=== PATIENT | male | born 1955 | race Caucasian/White ===

== ENCOUNTER 2016-10-14 15:00 | Inpatient (IN) | payer MEDICAID ==
[~2016-10-14] VITALS: Ht 175.3 cm; Wt 59.4 kg
[2016-10-14 15:08] VITALS: BP 118/82; PULSE 82; RESP 18; TEMP 97.6; O2SAT 98
--- NOTE | 2016-10-14 15:15 | NUR ---
Patient to ER bed 4 to gown for evaluation by Abby MILLER. Side rails up. Report given to me.
--- NOTE | 2016-10-14 15:20 | NUR ---
ER at bedside examining patient.
--- NOTE | 2016-10-14 15:30 | NUR ---
Patient presents to the emergency department with complaints of intermittent lower abd pain since about thursday, with diarrhea prior to arrival, 4/10 tolerable pain. (-)n/v at this time. Patient states he went to [facility] on thursday, was given morphine in the ER which did not help and an Rx of morphine to go home with but states the pharmacy "did not want to fill it, I dont know why." Patient noted to be having some slurred speech due to his myesthenia gravis per patient. Patient cooperative. will continue to monitor.
[2016-10-14 15:58] LABS: BASOPHILS % (AUTO) 0.2 % (0.0-2.0); HEMATOCRIT 41.1 % (36-54); HEMOGLOBIN 13.4 g/dL (14.0-18.0); LYMPHOCYTES # (AUTO) 1.1 K/uL (1.0-5.5); LYMPHOCYTES % (AUTO) 10.7 % (20.5-51.5); MEAN CORPUSCULAR HEMOGLOBIN 27 pg (27-31); MEAN CORPUSCULAR HGB CONC 33 % (32-36); MEAN CORPUSCULAR VOLUME 83 fL (79.0-98.0); MONOCYTES # (AUTO) 1.3 K/uL (0.0-1.0); MONOCYTES % (AUTO) 13.1 % (1.7-9.3); NEUTROPHILS # (AUTO) 7.4 K/uL (1.8-7.7); PLATELET COUNT (AUTO) 377 K/uL (130-430); RED BLOOD CELL COUNT(AUTO) 4.94 MIL/uL (4.2-6.2); RED CELL DISTRIBUTION WIDTH 16.7 % (9.0-15.0); WHITE BLOOD COUNT (AUTO) 9.8 K/uL (4.8-10.8)
[2016-10-14 16:01] LABS: CALCIUM 8.4 mg/dL (8.4-11.0); CREATININE 0.86 mg/dL (0.55-1.30); INR 1.2 (0.80-1.20); POTASSIUM 3.7 mmol/L (3.5-5.1); PROTHROMBIN TIME 12.9 SECS (9.5-12.5)
[2016-10-14 16:05] LABS: ALBUMIN 2.5 g/dL (3.4-4.8); TOTAL BILIRUBIN 0.7 mg/dL (0.0-1.0); TOTAL PROTEIN, SERUM 6.7 g/dL (6.4-8.3)
[2016-10-14 16:13] LABS: BILIRUBIN,URINE 2+ (NEGATIVE); BLOOD, URINE NEGATIVE (NEGATIVE); CLARITY/URINE SL HAZY (CLEAR); COLOR,URINE AMBER (YELLOW); GLUCOSE,URINE NEGATIVE (NEGATIVE); KETONES,URINE 2+ (NEGATIVE); LEUKOCYTE ESTERASE ,URINE NEGATIVE (NEGATIVE); NITRITE, URINE NEGATIVE (NEGATIVE); PROTEIN URINE 1+ (NEGATIVE)
--- NOTE | 2016-10-14 16:22 | NUR ---
Patient refused EKG for second time citing finacial concerns.
[2016-10-14] MEDS ORDERED: PIPERACILLIN/TAZO 3.375 GM in NS 50 ML IV ONE (17:00)
[2016-10-14] MEDS ORDERED: MORPHINE 4 MG/ML INJ. SYRINGE IVP ONE (17:00)
[2016-10-14] MEDS ORDERED: DIPHENHYDRAMINE INJ 50 MG/ML VIAL IVP ONE (17:00)
--- NOTE | 2016-10-14 17:00 | NUR ---
Dr cooper at the bedside to discuss with pt the POC
[2016-10-14] MEDS ORDERED: PIPERACILLIN/TAZOBACTAM 3.375 GM/VIAL (ZOSYN) IV ONE (17:06)
[2016-10-14 17:16] LABS: BACTERIA,URINE FEW /HPF (None Seen); MUCUS,URINE 2+ /LPF (None Seen); RBC,URINE NONE SEEN /HPF (0-3); WBC,URINE 0-3 /HPF (0-3)
[2016-10-14] MEDS ORDERED: MES60 PO (17:47)
[2016-10-14] MEDS ORDERED: LOPE2CAP PO (17:47)
--- NOTE | 2016-10-14 17:47 | NUR ---
Medication reconciliation completed with information provided by PATIENT. Any prior medication reconciliation on file was reviewed and corrected.
--- NOTE | 2016-10-14 18:27 | NUR ---
Patient will be admitted to care of DR JENSEN. Admitted to MED SURG unit. Will go to room 135 A. Summary report printed. Report given to JEANNETTE MILLER.
--- NOTE | 2016-10-14 18:39 | NUR ---
ADMIT NOTE Received pt from ER to the floor with a diagnosis of acute diverticulitis. Admission process initiated. Patient oriented to pain management, safety and call light-teach back done.
[2016-10-14 18:40] VITALS: BP 121/73; PULSE 64; RESP 17; TEMP 97.3; O2SAT 94
[2016-10-14] MEDS ORDERED: ACETAMINOPHEN 325 MG TABLET PO PRN (19:00)
[2016-10-14] MEDS ORDERED: MORPHINE 2 MG/ML INJ. SYRINGE IVP PRN (19:15)
[2016-10-14] MEDS ORDERED: ONDANSETRON HCL 4 MG/2 ML VIAL IVP PRN (19:15)
[2016-10-14] MEDS ORDERED: MORPHINE 4 MG/ML INJ. SYRINGE IVP PRN (19:15)
[2016-10-14] MEDS ORDERED: PYRIDOSTIGMINE BROMIDE 60 MG TABLET PO ONE (19:30)
--- NOTE | 2016-10-14 19:30 | NUR ---
Initial note Received report from ANGELA Oviedo. Lying in bed awake, alert & oriented x 4. Denies pain or discomfort at this time. Denies shortness of breath. Left ac IV access intact & patent. Speech garbled but able to verbalize needs. Ambulates to bathroom with supervision. Instructed on use of call light and to notify staff if in need of assistance. Verbalized understanding. Call light within reach, bed alarm on.
[2016-10-14 20:00] VITALS: BP 129/87; PULSE 76; RESP 18; TEMP 99.8; O2SAT 99
--- NOTE | 2016-10-14 21:13 | NUR ---
Ambulation Ambulated to bathroom to void and back to bed without assist. Notified RN prior to ambulation. Gait steady.
[2016-10-14] MEDS: LACTOBACILLUS RHAMNOSUS GG 1 CAP CAPSULE PO SCH (21:24)
[2016-10-14] MEDS: LR 1,000 ML IV SCH (21:27)
--- NOTE | 2016-10-14 21:31 | NUR ---
Medication Due po medications given as ordered. Tolerated well.
--- NOTE | 2016-10-14 23:40 | NUR ---
CONSULT: CONSULT CALLED FOR DR. MELCHOR I SPOKE WITH KLARISSA STEINBERG REASON FOR CONSULT: LLQ PAIN ORDER ENTERED BY DR. JENSEN NUMBER I CALLED [phone]
--- NOTE | 2016-10-15 | NUR ---
MD Dr. Willson called back regarding consult for patient. Updated on patient status. No further orders given.
[2016-10-15 00:29] VITALS: BP 124/72; PULSE 72; RESP 17; TEMP 98.1; O2SAT 98
--- NOTE | 2016-10-15 00:33 | NUR ---
Rounds Awake, alert & oriented x 3. No c/o pain or discomfort. Conversing with patient in bed B. Call light within reach.
[2016-10-15] MEDS: PIPERACILLIN/TAZO 3.375/DEX-IS 50 ML IV SCH ×4 (00:51→17:51)
--- NOTE | 2016-10-15 02:00 | NUR ---
Assisted fall Ambulated to bathroom with supervision, gait steady. Ambulated back to side of bed without assist. Observed trying to adjust height of side table by bedside and side table moving. Lost balance, assisted down to knees. Assisted back up and to bed. Denies pain. Vitals stable. Instructed to notify staff if in need of assistance, verbalized understanding. Call light within reach. Bed alarm in place.
[2016-10-15 04:17] VITALS: BP 149/82; PULSE 96; RESP 18; TEMP 98.8; O2SAT 98
[2016-10-15] MEDS: PYRIDOSTIGMINE BROMIDE 60 MG TABLET PO SCH ×5 (06:20→23:23)
--- NOTE | 2016-10-15 07:00 | NUR ---
Closing note Sitting up in bed eating breakfast. C/o abdominal pain rated 4 /10. Stated will ask for pain medication after breakfast. IV fluid infusing without dificulty to left hand. Call light within reach. Will endorse care to DAFNE Herr via SBAR method.
--- NOTE | 2016-10-15 07:00 | NUR ---
IV RE-INSERTION: IV site disconnected. Restarted on left hand. Successful after 2 attempts. Resumed current IVF of Lactate Ringer and regulated @ 80 per hour. Will observe for any signs of infiltration.
--- NOTE | 2016-10-15 07:15 | NUR ---
AM ROUNDS Pt A/Ox3..Slurred speech due to Myasthenia Gravis, pt tolerating clear liquids..IVF infusing well to LH...Pt aware of plan of care and of Dr. iWllson consult...Call light/phone w/in reach....Pt refuses bed rail up or bed alarm to be turned on...Will cont to monitor
[2016-10-15 07:22] LABS: CALCIUM 8.1 mg/dL (8.4-11.0); CREATININE 0.89 mg/dL (0.55-1.30); POTASSIUM 3.4 mmol/L (3.5-5.1)
[2016-10-15] MEDS: LR 1,000 ML IV SCH (08:00)
[2016-10-15 08:01] LABS: EOSINOPHILS # (AUTO) 0.1 K/uL (0.0-0.4); HEMATOCRIT 37.8 % (36-54); HEMOGLOBIN 12.4 g/dL (14.0-18.0); LYMPHOCYTES # (AUTO) 0.8 K/uL (1.0-5.5); LYMPHOCYTES % (AUTO) 9.3 % (20.5-51.5); MEAN CORPUSCULAR HEMOGLOBIN 28 pg (27-31); MEAN CORPUSCULAR HGB CONC 33 % (32-36); MEAN CORPUSCULAR VOLUME 84 fL (79.0-98.0); MONOCYTES # (AUTO) 1.3 K/uL (0.0-1.0); MONOCYTES % (AUTO) 14.8 % (1.7-9.3); NEUTROPHILS # (AUTO) 6.2 K/uL (1.8-7.7); NEUTROPHILS % (AUTO) 74.9 % (40.0-70.0); PLATELET COUNT (AUTO) 311 K/uL (130-430); RED BLOOD CELL COUNT(AUTO) 4.53 MIL/uL (4.2-6.2); RED CELL DISTRIBUTION WIDTH 16.8 % (9.0-15.0); WHITE BLOOD COUNT (AUTO) 8.4 K/uL (4.8-10.8)
[2016-10-15 08:07] VITALS: BP 115/76; PULSE 69; RESP 16; TEMP 98.1; O2SAT 99
[2016-10-15 09:52] LABS: ERYTHROCYTE SEDIMENTATION RATE 16 MM/HR (0-15)
--- NOTE | 2016-10-15 09:56 | NUR ---
PT AMBULATING IN HALLWAY W/P.T. USING A FWW
[2016-10-15] MEDS: LACTOBACILLUS RHAMNOSUS GG 1 CAP CAPSULE PO SCH ×2 (10:07→21:11)
--- NOTE | 2016-10-15 10:13 | NUR ---
PT REFUSED SIDE RAIL AND BED ALARM PT WAS EDUCATED ON IMPORTANCE OF USING CALL LIGHT
[2016-10-15 11:29] VITALS: BP 140/77; PULSE 74; RESP 16; TEMP 98.3; O2SAT 94
[2016-10-15 12:02] VITALS: Ht 175.3 cm; Wt 59.4 kg
--- NOTE | 2016-10-15 12:02 | NUR ---
ROUNDS PT STABLE...VISITING WITH ROOM MATE...WILL CONT TO MONITOR
--- NOTE | 2016-10-15 15:00 | NUR ---
ASSISTED PT OOB TO USE URINAL AT BEDSIDE. PT WENT BACK TO BED..BED ALARM ON
[2016-10-15 15:28] VITALS: BP 139/79; PULSE 77; RESP 19; TEMP 97.4; O2SAT 93
--- NOTE | 2016-10-15 16:00 | NUR ---
PT USING OWN DIAPER INFORMED PT THAT THIS IS A [facility]APER [facility]..PT WISHES TO KEEP HIS DIAPER ON
--- NOTE | 2016-10-15 16:11 | NUR ---
ROUNDS PT STABLE...LYING IN BED. DENIES PAIN AT THIS TIME...WILL CONT TO MONITOR
--- NOTE | 2016-10-15 17:10 | NUR ---
PT REFUSING IVF..DR JENSEN TO BE INFORMED PT STATES THAT THE IVF IS NOT HELPING HIM, AND IT THAT IT ONLY MAKES HIM URINATE...WILL INFORM DR JENSEN
--- NOTE | 2016-10-15 17:45 | NUR ---
INCONTINENT OF LOOSE BM PT TRYING TO GET OOB AND AMBULATE TO RESTROOM, BED ALARMED, PT INCONTINENT OF LOOSE BM..ASSISTED PT TO RESTROOM..PT CLEANED UP, DAUGHTER BROUGHT DIAPERS FROM HOME, NEW DIAPER PLACED PER PT REQUEST, ASSISTED BACK TO BED
[2016-10-15] MEDS ORDERED: POTASSIUM CHLORIDE 20 MEQ/PKT PACKET PO ONE (19:45)
--- NOTE | 2016-10-15 19:56 | NUR ---
BOTH DR MELCHOR AND DR JENSEN AT BEDSIDE DISCUSSING PLAN OF CARE WITH PT AND DAUGHTER
--- NOTE | 2016-10-15 20:00 | NUR ---
ROUNDS PATIENT IN BED, AWAKE, ALERT, ORIENTED, VITALS STABLE, DENIES ANY PAIN AND DISCOMFORT AT THIS TIME. DR. JENSEN AND DR. MELCHOR MAKING ROUNDS AND SEE PATIENT. DR. JENSEN INFORMED THAT PATIENT IS REFUSING IV FLUID AND IV ANTIOBIOTIC SAYING IT MAKE HIM MORE SICK. PATIENT'S DAUGHTER ALSO AT THE BEDSIDE. ASSESSMENT DONE AND DOCUMENTED. SEE FLOWSHEET. SAFETY AND FALL PRECAUTION MEASURES IN PLACED. CALL LIGHT PLACED WITHIN REACH.
--- NOTE | 2016-10-15 21:10 | NUR ---
MEDICATION DUE P.O. MEDICATIONS GIVEN ORDERED, TOLERATED WELL. WILL CONTINUE TO MONITOR.
[2016-10-15 22:37] LABS: ABG TOTAL HEMOGLOBIN 12.5 G/dL (12.0-18.0); BLOOD GAS BASE EXCESS -0.5 mmol/L (-3.0-3.0); BLOOD GAS COHb% 0.1 % (0.5-1.5); BLOOD GAS HHB 4.1 % (0.0-6.0); BLOOD GAS PH 7.439 (7.350-7.450); BLOOD O2Hb% 95.5 % (94.0-97.0)
--- NOTE | 2016-10-16 | NUR ---
PATIENT RESTING: Patient resting quietly. No acute distress noted. Vital signs within normal range.
[2016-10-16 00:39] VITALS: BP 137/79; PULSE 69; RESP 18; TEMP 97.1; O2SAT 97
--- NOTE | 2016-10-16 02:15 | NUR ---
ROUNDS PATIENT ASLEEP, NO SOB NOTED, WILL CONTINUE TO MONITOR.
[2016-10-16 03:30] VITALS: BP 117/74; PULSE 54; RESP 18; TEMP 96.6; O2SAT 99
--- NOTE | 2016-10-16 04:10 | NUR ---
PATIENT RESTING: Patient resting quietly. No acute distress noted. Vital signs within normal range.
--- NOTE | 2016-10-16 04:38 | NUR ---
CONSULT: CONSULT CALLED FOR DR. NELSON I SPOKE WITH CHUCK STEINBERG REASON FOR CONSULT: MYASTHENIA GRAVIS CONSULT ENTERED BY DR. JENSEN NUMBER I CALLED [phone]
[2016-10-16] MEDS: PIPERACILLIN/TAZO 3.375/DEX-IS 50 ML IV SCH ×4 (06:00→17:37)
--- NOTE | 2016-10-16 06:50 | NUR ---
CLOSING NOTES PATIENT AWAKE, VITALS STABLE, NO PAIN AND DISCOMFORT AT THIS TIME. ALL NEEDS ATTENDED TO. SAFETY MEASURES MAINTAINED. CALL LIGHT PLACED WITH PATIENT.
[2016-10-16] MEDS: PYRIDOSTIGMINE BROMIDE 60 MG TABLET PO SCH ×3 (07:36→17:59)
--- NOTE | 2016-10-16 07:40 | NUR ---
OPENING NOTE: Patient is resting comfortably, is alert and oriented x 4. Patient's bed is in lowest position, bed alarms is on, and call light is within reach. Patient belongings are within reach. Patient able to verbalize needs. Patient denies pain at this time, and no signs of distress present. Will continue to monitor patient for change in status. Addendum: 10/16/16 at 1019 by Mita Larsen RN Patient educated on the use of pull up type briefs, and the increased risk of skin breakdown associated with them. Patient verbalizes understanding. Patient still would like to use them.
[2016-10-16 08:00] VITALS: BP 130/75; PULSE 62; RESP 14; TEMP 97.1; O2SAT 98
--- NOTE | 2016-10-16 08:01 | NUR ---
Nutrition Update Miguel Scale 17 noted. Pt admitted for acute diverticulitis. Diet: clear liquid BMI: 19.3 kg/m2 RD to follow per nutrition care standards.
[2016-10-16 08:52] LABS: CALCIUM 8.7 mg/dL (8.4-11.0); CREATININE 0.76 mg/dL (0.55-1.30); POTASSIUM 4.1 mmol/L (3.5-5.1)
[2016-10-16] MEDS: LR 1,000 ML IV SCH ×2 (08:56→09:00)
[2016-10-16] MEDS: LACTOBACILLUS RHAMNOSUS GG 1 CAP CAPSULE PO SCH ×2 (09:00→11:07)
--- NOTE | 2016-10-16 10:21 | NUR ---
LAURENT PLANNING Order to transfer to [facility] for Neurology higher level of care. Spoke w pt @ bedside, states his Myasthenia Gravis getting worse. Has appt ThursdayOctober 20 @ [facility]) w neurologist. States this is his first visit w neurologist that does not have a Dr assigned yet. Has been to [facility] in past. Agreeable w transfer. Pt hard to understand was able to understand most of what pt said, what I did not understand pt wrote on paper. Called [facility] transfer center, ph [phone] & spoke rosalinda Patino, looked up pt & stated that need to go thru pt's insurance [employer]. Called & [facility] [phone] fax [phone], informed of order & faxed pt info requested. Received call from Janet she is referring pt to [facility] to look for contracted higher level of care bed. Addendum: 10/16/16 at 1159 by Jewels Hall RN Received call from Janet stating she tried [facility] & they need Neuro consult notes & neuro work up. States cannot start the transfer process until neuro consult & neuro workup done. Pt's nurse Laura gonzales. Updated Dr Flores, & Pearl STOVALL Director. Addendum: 10/16/16 at 1645 by Lindsey OROZCO Unable to order Radiology CD, no one available. Called [facility] [phone] spoke with Kellen oteroest ACLS (Vision Specialist) available. Kellen will call nurse station to confirm time and which ambulance vendor will be transporting patient Conf#[id number] to [facility] at [address] [address] RN to report [phone]. Placed transportation packet in nurse station. Addendum: 10/16/16 at 1646 by Jewels Hall RN Received call from [facility] @ [facility], ph [phone], pt accepted under Dr Cesar Walker & Dr Adela Brownlee, pt going to Tele Unit 8A room 134, #for report [phone]. States to use [facility] for ambulance. Per [facility] would like w call back w ETA. Informed pt's nurse Laura. Informed pt @ bedside, gave him room # & address, pt states is happy is going, informed pt that nurse will inform of time once ambulance calls back w time of transportation. Received call from [facility] & informed accepted @ [facility], faxed ct head & neuro progress note(dictation not ready yet). Addendum: 10/16/16 at 1724 by Lindsey Encinas DP Received call from Jamila at [facility] [phone] who requested assistance in arrange transport, unable to find transport available. Called [facility] [phone] spoke with Lalito who confirmed able to arrange ACLS (Vision Specialist) sisal picker between 7-7:30pm. Notified Jamila at [facility] who will forward auth to [employer] for transport.
--- NOTE | 2016-10-16 10:30 | NUR ---
ROUNDING AND SCDS Patient is sitting upright in bed comfortably. Patient is alert and oriented, and denies pain at this time. No signs and symptoms of distress noted. Patients bed is in lowest position, call light within reach, and bed alarms is on. Patient has orders for SCDs to be applied for DVT prophylaxis, patient is educated on the use of the device and is refusing because he feels that he walks enough and is able to move in bed on his own. Will continue to monitor patient for changes in status.
--- NOTE | 2016-10-16 11:34 | NUR ---
Neuro consult: for Dr. Mckeon, regarding myasthenia gravis, ordered by Dr. Flores, spoke with Vanessa.
[2016-10-16 11:51] VITALS: BP 148/76; PULSE 67; RESP 18; TEMP 97.5; O2SAT 98
--- NOTE | 2016-10-16 12:00 | NUR ---
ROUNDS Patient sitting upright in bed and resting comfortably. Patient denies any pain, and no notable signs of distress present at this time. Patients bed is in lowest position, call light within reach, and bed alarm is on. Will continue to monitor patient for any changes.
--- NOTE | 2016-10-16 13:30 | NUR ---
MD CRESENCIO carrillo, aware that pt is refusing to take IV antibiotics and have IV fluids running. Addendum: 10/16/16 at 1341 by Suki Roldan RN Went in with Dr Flores to see pt, dr Flores explained to him that he has diverticulitis an infection that needs to be treated with antibiotics and that he needs to take the antibiotics prescribed, provided him with a copy of the results of the CT of the abd and that pt will become possibly septic if the infection is not treated, pt verbalized understanding but continues to refused antibiotics.
[2016-10-16 16:54] VITALS: BP 120/66; PULSE 64; RESP 16; TEMP 98.4; O2SAT 97
--- NOTE | 2016-10-16 18:23 | NUR ---
PAGED: I JUST CALLED TO VERIFIED IF I CALLED THE CORRECT CONSULT LAST NIGHT HES I DID I CALLED THIS MORNING @ [phone] FOR [address]. ALISSA Angeles. I SPOKE WITH CHUCK STEINBERG. I JUST CALLED AGAIN 1809 I SPOKE WITH STEVE STEINBERG SHE SAID THE CONSULT WAS ENTERED FOR DR. ALISSA Angeles. I DO NOT KNOW WHY I PUT ON MY NOTES THAT I CALLED DR. NELSON. THIS EVENING JUSTIN MARTINEZ RN IN CHARGE OF THIS PATIENT TOLD ME THAT I CALLED DR. NELSON INSTEAD MY NOTES WERE WRONG I DID CALLED DR. ALISSA Yuan THIS MORNING. NUMBER I CALLED [phone]. EVERYBODY MADE MISTAKES WE ARE NOT PERFECT. ONLY GOD IS PERFECT
--- NOTE | 2016-10-16 18:25 | NUR ---
CLOSING NOTE Patient is resting comfortably, pending ambulance call to transfer. Patient belongings are gathered at bedside. Patient denies any pain at this time. Patient is stable at this time. Awaiting transfer of care to night auditor nurse. Call light within reach, bed in lowest position, bed alarm is on. Will continue to monitor for changes in status.
--- NOTE | 2016-10-16 19:02 | NUR ---
Edge Glue Machine Tender Spoke with Umm from [facility] at [phone] and let her know the ETA which is [phone].
[2016-10-16 19:51] VITALS: BP 124/75; PULSE 63; RESP 17; TEMP 97.8; O2SAT 94
--- NOTE | 2016-10-16 20:20 | NUR ---
D/C Patient Patient transferring to [facility] for higher level of care. Exit Care provided. Patient verbalized understanding. MD discussed with patient the results and treatment provided. [facility] here to pick him up for transfer, transferring ACLS. Patient in stable condition, ID band removed, replaced with white name band with name and birthday, patient verified spelling and birthday is correct. IV catheter left in place 20G, patent and saline locked. . Patient educated on pain management. All belongings sent with patient.
[2016-10-16] MEDS ORDERED: PYRIDOSTIGMINE BROMIDE 180 MG PO SCH (21:00)
== END 2016-10-16 20:20 | disposition short-term general hospital (02) | DRG 244 ==
LOC: SED 15:00 → SMU 18:23 → STU 10-15 20:17
PROVIDERS: ADMIT Internal Medicine; ATTEND Internal Medicine
DX: K57.92 Diverticulitis of intestine, part unspecified, without perforation or abscess without bleeding (principal); G70.00 Myasthenia gravis without (acute) exacerbation; E44.0 Moderate protein-calorie malnutrition; E87.1 Hypo-osmolality and hyponatremia; K40.90 Unilateral inguinal hernia, without obstruction or gangrene, not specified as recurrent; Z79.899 Other long term (current) drug therapy; Z91.011 Allergy to milk products; Z91.018 Allergy to other foods; Z68.1 Body mass index [BMI] 19.9 or less, adult
CPT/HCPCS: 36415; 36600; 70450-TC; 71010; 80048; 80053; 81000-TC; 82803-TC; 83605; 83690-TC; 85025; 85610-TC; 85651-TC; 87040-TC; 96365; 96375; 97110-GP; 97116-GP; 97530-GP; 99285; J1200; J2270; J2543; J7120